=== PATIENT | female | born 1980 | race Caucasian/White ===

== ENCOUNTER 2018-03-30 07:50 | Inpatient (IN) | payer OTHER ==
[2018-03-30] MEDS ORDERED: Oxytocin in LR* 20 UNITS/1,000 ML BAG IVPB SCH (09:00)
[2018-03-30 09:52] LABS: ABS Basophils 0 10^3/ul (0-0.2); ABS Eosinophils 0.1 10^3/ul (0-0.6); ABS Lymphocytes 1.9 10^3/ul (1.0-4.8); ABS Monocytes 0.5 10^3/ul (0-0.8); ABS Neutrophils 7.4 10^3/ul (1.5-7.7); ABS Nucleated RBC 0 10^3/ul; Eosinophil % 0.6 %; Hematocrit 36 % (35-47); Hemoglobin 12.3 g/dl (12.0-16.0); Lymphocyte % 19.2 %; Mean Corpuscular HGB Conc 34 g/dl (31-36); Mean Corpuscular Hemoglobin 31 pg (27-31); Mean Corpuscular Volume 90 fL (80-97); Mean Platelet Volume 10.1 fL (7.4-10.4); Nucleated Red Blood Cells % 0; Platelet Count 144 10^3/ul (150-450); Red Cell Distribution Width 13 % (10.5-15); White Blood Count 9.9 10^3/ul (3.5-10.8)
--- NOTE | 2018-03-30 13:41 | HP ---
General Information - Reason for Visit Pt is a 37yo G1 at 39+1 wks here for induction today. Pt's complicated by AMA and fetus with bilat club feet and IUGR. < 10th percentile at 36 wks. NST, KRIS, dopplers have been normal and reassuring since then. Pt without any complaints today. - General Information Maternal Age: 37 Grav: 1 Para: 0 SAB: 0 IEA: 0 Estimated Due Date: 04/05/18 Determined By: LMP Gestational Age in Weeks/Days: 39+1 Maternal Blood Type and Rh: A Positive - Results this Serology/RPR Result: Non-Reactive Rubella Result: Immune HBsAg Result: Negative HIV Result: Negative GBS Culture Result: Negative Past Medical History Delivery History: See Records - none Pertinent Past Medical History: See Records - ADD, migraines, IBS Pertinent Past Surgical History: See Records - L/S cholecystectomy Pertinent Family History: Non-Contributory - Antepartal Records Antepartal Records: Reviewed, Complicated by: - IUGR, bilat club feet Review of Systems Constitutional: Comfortable CV Complaint: No Respiratory: Shortness of Breath: No Gastrointestinal: No Nausea/Vomiting Genitourinary: No Dysuria, No Bleeding, No Leaking Fluid Musculoskeletal: Contractions - mild, irregular Neurological: No Headache Movement: Normal Exam Allergies/Adverse Reactions: Allergies adhesive Adverse Reaction (Mild, Verified 03/30/18 08:34) Itching latex Adverse Reaction (Mild, Verified 03/30/18 08:34) Itching 118/56, 98.8, P123, RR18 Lab Values - Entire Visit: Laboratory Tests 03/30/18 03/30/18 09:40 09:40 WBC 9.9 RBC 4.00 Hgb 12.3 Hct 36 MCV 90 MCH 31 MCHC 34 RDW 13 Plt Count 144 L MPV 10.1 Neut % (Auto) 75.2 Lymph % (Auto) 19.2 [place] % (Auto) 4.7 Eos % (Auto) 0.6 Baso % (Auto) 0.3 Absolute Neuts (auto) 7.4 Absolute Lymphs (auto) 1.9 Absolute Monos (auto) 0.5 Absolute Eos (auto) 0.1 Absolute Basos (auto) 0 Absolute Nucleated RBC 0 Nucleated RBC % 0 Blood Type A Positive Antibody Screen Negative - Measurements Height: 5 ft 3 in Weight: 168 lb Weight in lbs: 168.075435 Body Mass Index (BMI): 29.7 Pre- Weight: 137 lb Weight Gained This : 31 lbs and 0 ozs - Exam Breast: Breast Exam Deferred Heart: Normal Rhythm/Heart Sounds HEENT: No Significant Findings Lungs: Clear Bilaterally Rectal: Rectal Exam Deferred - Abdominal Exam Abdomen Exam: Non-Tender - Ultrasound/Biophysical Profile Ultrasound Status: Not Done Targeted Exam Findings Estimated Weight: 6 lbs Cervical Exam: 2cm Effacement: 80% Station: -1 Presenting Part: Vertex Membrane Status: Intact EFM Findings - External Monitor Findings Baseline Heart Rate: 130 External Monitor Findings: Accelerations Present, No Pattern of Variable or Late Decelerations, Variability Moderate, Baseline Stable Contractions: Irregular, Mild Assessment/Plan - Assessment 39+1 wks with IUGR, bilat club feet here for induction today. Very reassuring status. - Obstetrical Risk Factors Obstetrical Risk Factors: IUGR - Plan Plan: Induction, Admit - Anticipate Vaginal Delivery Plan Comment: Plan to start low dose pitocin - Date/Time of Admission Date of Admission: 03/30/18 Time of Admission: 09:00
[2018-03-30] MEDS ORDERED: OBEPIDURAL* 0 ML EPIDURAL ONE (17:35)
[2018-03-30] MEDS ORDERED: Sodium Citrate/Citric Acid* 15 ML UDC PO PRN (18:17)
[2018-03-30] MEDS ORDERED: Phenylephrine IV* 40 MCG/ML 10 ML SYRINGE IV PUSH PRN ×2 (18:17)
[2018-03-30] MEDS ORDERED: EPHEDrine (Pressors)* 50 MG/ML VIAL IV PUSH PRN ×2 (18:17)
[2018-03-30] MEDS ORDERED: Famotidine TAB* 20 MG PO PRN (18:17)
[2018-03-30] MEDS ORDERED: OBEPIDURAL* 250 ML EPIDURAL SCH (19:00)
[2018-03-30] MEDS ORDERED: Ammonia Inhalant* 1 EA AMP ONE (19:04)
[2018-03-30] MEDS ORDERED: fentaNYL* 50 MCG/ML 2 ML VIAL (100 MCG VIAL) ONE (19:57)
[2018-03-31] MEDS ORDERED: Witch Hazel PAD* JAR ONE (01:17)
[2018-03-31] MEDS ORDERED: Dibucaine 1% 28.35 GM TUBE ONE (01:17)
[2018-03-31] MEDS ORDERED: Witch Hazel PAD* JAR TOPICAL PRN (01:55)
[2018-03-31] MEDS ORDERED: Acetaminophen TAB* 325 MG PO PRN (01:55)
[2018-03-31] MEDS ORDERED: Dibucaine 1% 28.35 GM TUBE PR PRN (01:55)
[2018-03-31] MEDS ORDERED: Oxytocin in LR* 20 UNITS/1,000 ML BAG IVPB SCH (02:00)
--- NOTE | 2018-03-31 02:43 | PROCNOTE ---
[facility] OB: Delivery Note - Nursery Level of Nursery: Regular/Bedside - Perineum Perineal Injury: 2nd Degree Perineal Injury Comment: and right labial Perineal Repair: By Delivering Practioner - Events Delivery Events of Note: Pitocin During Labor Delivery Events of Note Comment: Pt presented at 39 wks for induction for IUGR diagnosed about 2-3 wks ago. Cervix 2cm dilated on admission, so pitocin started. After about 8 hrs, cervix was about 4cm, and AROM performed. Pt quickly had stronger ctx and received an epidural. Second epidural placed shortly after due to poor pain mgmt. She reached C/C/+1 and began pushing. She pushed for about 2 hrs to deliver the head in a controlled fashion. Compound posterior arm was present. Shoulders and body delivered without difficulty. 1% lidocaine injected. 3-0 and 4-0 Vicryl Rapide used for perineal repair.
[2018-03-31 07:06] LABS: ABS Basophils 0 10^3/ul (0-0.2); ABS Eosinophils 0 10^3/ul (0-0.6); ABS Lymphocytes 1.4 10^3/ul (1.0-4.8); ABS Monocytes 0.8 10^3/ul (0-0.8); ABS Neutrophils 15.1 10^3/ul (1.5-7.7); ABS Nucleated RBC 0 10^3/ul; Eosinophil % 0 %; Hematocrit 31 % (35-47); Hemoglobin 10.4 g/dl (12.0-16.0); Lymphocyte % 8.3 %; Mean Corpuscular HGB Conc 34 g/dl (31-36); Mean Corpuscular Hemoglobin 30 pg (27-31); Mean Corpuscular Volume 89 fL (80-97); Mean Platelet Volume 10.9 fL (7.4-10.4); Nucleated Red Blood Cells % 0; Platelet Count 137 10^3/ul (150-450); Red Blood Count 3.47 10^6/ul (4.00-5.40); Red Cell Distribution Width 13 % (10.5-15); White Blood Count 17.4 10^3/ul (3.5-10.8)
[2018-03-31] MEDS: Docusate CAP* 100 MG PO SCH ×3 (08:20→20:48)
[2018-03-31] MEDS: Ibuprofen TAB* 600 MG PO PRN ×3 (08:20→20:49)
[2018-03-31] MEDS ORDERED: Simethicone TAB* 80 MG TAB.CHEW PO SCH (08:30)
--- NOTE | 2018-03-31 18:28 | PTEDU ---
Patient Name: UVALDO MURPHY UVALDO MURPHY selected video: Follow Me Mum: [facility] [place] [facility] Successful to view on 06/01/2017 at 6:28:21 PM from [id number]
[2018-04-01] MEDS: Ibuprofen TAB* 600 MG PO PRN ×2 (04:04→20:24)
[2018-04-01] MEDS: Docusate CAP* 100 MG PO SCH ×3 (08:37→22:41)
[2018-04-01] MEDS ORDERED: Ferrous Gluconate TAB* 324 MG TAB PO SCH (09:00)
[2018-04-02 07:25] VITALS: BP 114/76
--- NOTE | 2018-04-02 09:29 | PTEDU ---
Patient Name: UVALDO MURPHY TANVIRSALOElke UVALDO selected video: Never Ever Shake a Baby to view on 04/02/2018 at 9:29:07 AM amol barajas [id number]
[2018-04-02] MEDS: Docusate CAP* 100 MG PO SCH (09:31)
== END 2018-04-02 13:15 | disposition home or self-care (01) | DRG 807 ==
LOC: MCHOBOUT 07:50 → MCHOB 08:55
PROVIDERS: ADMIT Obstetrics & Gynecology; ATTEND Obstetrics & Gynecology
PROC: 10E0XZZ Delivery of Products of Conception, External Approach (ICD-10-PCS; principal; 2018-03-31)
PROC: 0KQM0ZZ Repair Perineum Muscle, Open Approach (ICD-10-PCS; 2018-03-31)
PROC: 3E033VJ Introduction of Other Hormone into Peripheral Vein, Percutaneous Approach (ICD-10-PCS; 2018-03-31)
PROC: 10907ZC Drainage of Amniotic Fluid, Therapeutic from Products of Conception, Via Natural or Artificial Opening (ICD-10-PCS; 2018-03-31)
PROC: 0UQMXZZ Repair Vulva, External Approach (ICD-10-PCS; 2018-03-31)
DX: O36.5930 Maternal care for other known or suspected poor fetal growth, third trimester, not applicable or unspecified (principal); Z37.0 Single live birth; O70.1 Second degree perineal laceration during delivery; O32.6XX0 Maternal care for compound presentation, not applicable or unspecified; Z3A.39 39 weeks gestation of pregnancy
CPT/HCPCS: 36415; 85025; 86850; 86900; 86901; A9270-GY; J3010